=== PATIENT | male | born 1935 | race Caucasian/White ===

== ENCOUNTER → 2019-09-24 | Day surgery (SDC) | payer OTHER ==
[~2019-09-24] VITALS: Ht 177.8 cm; Wt 74.8 kg
[~2019-09-24] MED LIST: ASPI-404 PO; BUPIVACAINE W/ EPINEPH 0.25% INJ 50ML MDV ONE; HYDROmorphone HCL 2 MG/ML VL IV PRN; LIDOCAINE 1% HCL (LOCAL ANESTH.) INJ 20ML MDV ONE; LIDOCAINE W/ EPINEPHRINE 1% 20ML VIAL ONE; LORA1TAB12 PO; MIDAZOLAM HCL 1MG/1ML-2 ML VIAL ONE; MORPHINE SULF(PF) 0.5MG/ML 10ML VIAL ONE; MORPHINE SULFATE 4 MG/ML SYR/VIAL IV PRN; MULTTAB61 PO; ONDANSETRON HCL 4 MG/2 ML VIAL IV PRN; ONDANSETRON HCL 4 MG/2 ML VIAL ONE; PROPOFOL 10 MG/ML 20 ML IV ONE; SIMV80TA73 PO; SODIUM CHLORIDE LOCK 10 ML ONE; VANCOMYCIN HCL 1000 MG VL ONE; ceFAZolin 1GM/50ML 100 ML IV ONE; fentaNYL CITRATE 100 MCG/2 ML VL IV PRN; fentaNYL CITRATE 100 MCG/2 ML VL ONE
[2019-09-24 09:22] VITALS: BP 142/57
== END | disposition home or self-care (01) ==
LOC: SUR 06:14
PROVIDERS: ATTEND Anesthesiology Pain Medicine
DX: M48.07 Spinal stenosis, lumbosacral region (principal); Z87.891 Personal history of nicotine dependence; Z85.528 Personal history of other malignant neoplasm of kidney; Z98.890 Other specified postprocedural states; Z11.59 Encounter for screening for other viral diseases
CPT/HCPCS: 22869; 22870; 71045; 72100; C1821; J0690; J2001; J2250; J2270; J2405; J2704; J3010; J3370; U0003; 76001